=== PATIENT | female | born 1960 | race Caucasian/White ===

== ENCOUNTER 2018-03-08 10:18 | Day surgery (SDC) | payer OTHER ==
[~2018-03-08 10:18] MED LIST: Buffered Lidocaine 0.9% SYRIN* 5 ML/SYR SYRINGE INTRADERM ONE; Dexamethasone IV* 4 MG/ML 1 ML (4 MG) IV SLOW PU ONE; Famotidine IV* 10 MG/ML 2 ML (20 mg) IV ONE
[2018-03-08] MEDS ORDERED: Dexamethasone IV* 4 MG/ML 1 ML (4 MG) ONE (10:30)
[2018-03-08] MEDS ORDERED: Famotidine IV* 10 MG/ML 2 ML (20 mg) ONE (10:30)
[2018-03-08] MEDS ORDERED: ceFAZolin 2 GM in NS PREMIX(*) 2 GM/100 ML BAG IVPB ONE (10:31)
[2018-03-08] MEDS ORDERED: ROPIVACAINE 5 MG/ML 30 ML BTL (0.5%) ONE (10:47)
[2018-03-08] MEDS ORDERED: Lidocain 1% EPI 1:100,000 * 30 ML MDV ONE (10:47)
[2018-03-08] MEDS ORDERED: fentaNYL* 50 MCG/ML 2 ML VIAL (100 MCG VIAL) ONE ×2 (11:46→12:28)
[2018-03-08] MEDS ORDERED: Midazolam* 1 MG/ML 2 ML VIAL (2 MG) ONE (11:46)
[2018-03-08] MEDS ORDERED: Lidocaine 2% PF * 5 ML VIAL ONE (12:03)
[2018-03-08] MEDS ORDERED: Propofol* 10 MG/ML 20 ML BTL IV PUSH ONE (12:03)
[2018-03-08] MEDS ORDERED: Ketorolac INJ* 30 MG/ML 1 ML VIAL ONE (12:10)
[2018-03-08] MEDS ORDERED: Ondansetron INJ* 2 MG/ML VIAL ONE (12:23)
[2018-03-08] MEDS ORDERED: oxyCODONE/Acetamin 5/325 MG* TAB PO PRN (13:03)
[2018-03-08] MEDS ORDERED: DiMENhydriNATE IV* 50 MG/ML VIAL IV PUSH PRN (13:03)
[2018-03-08] MEDS ORDERED: Naloxone* 0.4 MG/ML 1 ML VIAL IV PRN (13:03)
[2018-03-08] MEDS ORDERED: HYDROcodone/ACETAMIN 5-325 MG* 1 TAB PO PRN (13:03)
[2018-03-08] MEDS ORDERED: fentaNYL* 50 MCG/ML 2 ML VIAL (100 MCG VIAL) IV PRN (13:03)
[2018-03-08 13:20] VITALS: BP 116/76
--- NOTE | 2018-03-09 10:37 | OP ---
CC: PCP, Dr. Ahumada * DATE OF OPERATION: 03/08/18 - [facility] DATE OF : 58. SURGEON: Stanislaw Vazquez MD. PNEUMATIC JACKETER: None available. ANESTHESIOLOGIST: Dr. Jackson. ANESTHESIA: General. PRE-OP DIAGNOSIS: Right knee loose body with a locked knee. POST-OP DIAGNOSIS: Right knee loose body with a locked knee, lateral meniscus tearing. OPERATIVE PROCEDURE: Right knee arthroscopy with removal of loose body x3, all greater than 5 mm as well as partial lateral meniscectomy. COMPLICATIONS: None. ESTIMATED BLOOD LOSS: Minimal. INDICATIONS: Collette Dhaliwal is a 57-year-old female who presents with right knee pain off and on. She has had a catching and locking of the knee, most recently her knee has been locked for the last week and she cannot fully extend the knee. We have done MRIs and x-rays to determine loose body in the knee. Risks and benefits of surgery were discussed at length included but not limited to bleeding; infection; damage to nerves, vessels, surrounding structures; wound nonhealing; persistent pain; need for further surgery; scarring; stiffness ; incomplete relief of symptoms; and risks of anesthesia. The patient has a family history of DVT and therefore she was placed on Lovenox for 10 days postop. DESCRIPTION OF PROCEDURE: The patient was greeted in the preoperative area by the attending surgeon. Correct extremity was marked and the consent was confirmed. The patient was brought back to the operating suite where she was placed in supine position on the operating table. She then underwent general anesthesia and LMA intubation, after which an unsterile tourniquet was placed high in the proximal thigh, the lateral post was positioned. The right leg was then prepped and draped in usual sterile fashion. The patient only had range of motion from about 30 to 130 degrees of flexion. She could not fully extend her knee, had a small effusion. After appropriate surgical pause indicating site, side, procedure, and administration of antibiotics, the knee was intra-articularly injected with 1% lidocaine with epi. The anterolateral portal was made sharply with an 11- blade. Scope was introduced into the joint and the joint was examined. There was abundant synovitis and an obvious large loose body that was present, this was over 2 cm in length. The medial portal was then made and extended medial portal as typical one would not get this out. The shaver was used to debride back the synovitis around this to greater visualize the piece and a large grasper was then used to grab the piece, bring it out through the wound. A shaver was used to debride back the remainder of the bursa. Diagnostic arthroscopy was done. The ACL was intact. It had some partial thickness tearing. The medial compartment had grade 2 changes and grade 1 and 2 changes in the plateau. There was an area of grade 3 and 4 changes around the trochlea. The medial meniscus was intact. There was no unstable fraying and the knee was placed in xcyzol-xi-wahn position. There were grade-2 changes to the lateral femoral condyle and lateral plateau and then there is fraying of the lateral meniscus as well as the root. This was debrided back using shaver. The knee was then placed in extension. There were grade 4 changes about the patellofemoral joints. The scope was positioned into the suprapatellar pouch and there was another loose body that was present there. A separate incision was used to remove that in two pieces. These were both greater than 1 cm. Shaver was used to debride back any unstable tissues and remove any of the synovitis. The final images were obtained. The wounds were copiously irrigated with sterile saline. Final pictures of the loose bodies were obtained. The portals were closed in layers with 2-0 Vicryl and 3-0 nylon. The knee was then injected with 0.25% ropivacaine plain. Sterile dressings were applied as well as a Cryo/Cuff. She was awoken from anesthesia and transferred to PACU in stable condition. POSTOPERATIVE PLAN: She will be weight bearing as tolerated. She will be discharged on pain medication as well as Lovenox. DVT prophylaxis was considered and Lovenox was prescribed because she has a family history. She will get Lovenox for 10 days. I will see the patient back in 10 to 14 days. [id number]/[facility] #: [id number] NAJMA
== END 2018-03-08 13:46 | disposition home or self-care (01) ==
LOC: OREAST 10:18
PROVIDERS: ATTEND Orthopaedic Surgery
DX: S83.281A Other tear of lateral meniscus, current injury, right knee, initial encounter (principal); M23.41 Loose body in knee, right knee; X58.XXXA Exposure to other specified factors, initial encounter; Y92.9 Unspecified place or not applicable
CPT/HCPCS: 88304; 88311; J0690; J1100; J1885; J2250; J2405; J2704; J2795; J3010